=== PATIENT | male | born 1990 | race African-American/Black ===

== ENCOUNTER 2016-10-30 18:41 | Emergency (ER) | payer MEDICAID ==
[~2016-10-30] VITALS: Ht 190.5 cm; Wt 136.0 kg
[2016-10-30] MEDS ORDERED: KETOROLAC 60MG/2ML VIAL IM ONE (21:15)
[2016-10-30] MEDS ORDERED: CYCLOBENZAPRINE 10MG TABLET PO ONE (21:15)
[2016-10-30 21:46] VITALS: BP 136/76
== END 2016-10-30 23:05 | disposition home or self-care (01) ==
LOC: ER 21:18
DX: S16.1XXA Strain of muscle, fascia and tendon at neck level, initial encounter (principal); S39.012A Strain of muscle, fascia and tendon of lower back, initial encounter; F17.200 Nicotine dependence, unspecified, uncomplicated; F12.10 Cannabis abuse, uncomplicated; Z98.890 Other specified postprocedural states; V49.9XXA Car occupant (driver) (passenger) injured in unspecified traffic accident, initial encounter; Y93.89 Activity, other specified; Y92.89 Other specified places as the place of occurrence of the external cause; Y99.8 Other external cause status
CPT/HCPCS: 72100; 72125; 96372; 99284; J1885; Z7610

== ENCOUNTER 2017-02-24 17:34 | Emergency (ER) | payer MEDICAID ==
[~2017-02-24] VITALS: Ht 193 cm; Wt 137.0 kg
[2017-02-24 17:49] VITALS: BP 164/92
== END 2017-02-25 00:07 | disposition left against medical advice (07) ==
LOC: ER 21:09
DX: Z04.8 Encounter for examination and observation for other specified reasons (principal); M25.512 Pain in left shoulder; M54.2 Cervicalgia; M79.602 Pain in left arm; Z53.21 Procedure and treatment not carried out due to patient leaving prior to being seen by health care provider

== ENCOUNTER 2017-02-25 13:53 | Emergency (ER) | payer MEDICAID ==
[~2017-02-25] VITALS: Ht 190.5 cm; Wt 128.0 kg
[2017-02-25 14:30] VITALS: BP 122/69
[2017-02-25] MEDS ORDERED: KETOROLAC 60MG/2ML VIAL IM ONE (14:30)
== END 2017-02-25 16:30 | disposition home or self-care (01) ==
LOC: ER 14:30
DX: M25.512 Pain in left shoulder (principal); J45.909 Unspecified asthma, uncomplicated; F17.210 Nicotine dependence, cigarettes, uncomplicated; F12.10 Cannabis abuse, uncomplicated; Y04.0XXA Assault by unarmed brawl or fight, initial encounter
CPT/HCPCS: 73030; 96372; 99284; J1885